=== PATIENT | female | born 1935 | race Caucasian/White ===

== ENCOUNTER 2017-01-16 01:42 | Emergency (ER) | payer MEDICARE, BC ==
[~2017-01-16] VITALS: Ht 165.1 cm; Wt 73.0 kg
[2017-01-16 01:42] VITALS: BP 132/73; PULSE 88; RESP 16; TEMP 97.9; O2SAT 96
[~2017-01-16 01:42] MED LIST: ADVA100A INH; COLA100C3 PO; LOSA100T2 PO; LYRI75CA PO; MIRA25TA PO; PARO20TA2 PO; TYLETAB34 PO
[2017-01-16] MEDS ORDERED: LUTE40CA2 PO (01:57)
[2017-01-16] MEDS ORDERED: ZOFR4TAB3 SL (01:59)
--- NOTE | 2017-01-16 02:14 | PD ---
HPI Chief Complaint: Chest Pain Time Seen by Provider: 01:59 Travel History International Travel<30 days: No Contact w/Intl Traveler<30days: No Traveled to known affect area: No History of Present Illness HPI 81-year-old female with history of HTN, COPD here with complaint of abdominal pain radiating into the chest. Patient states that approximately one week ago she had a single episode of diarrhea. Since then she has had a pressure within the upper abdomen located primarily within the epigastrium with extreme nausea. Her symptoms have been fairly constant. She notes that approximately 30-45 minutes after eating the pain and nausea in the epigastrium seems to be worse. This morning approximately 45 minutes prior to arrival patient was awoken from sleep with the pain now radiating up into the chest underneath the left breast. Patient denies any history of cardiac disease and states that she believes she had a nuclear stress test with Dr. Moreno just 3 months ago. No history of an creatinine or hepatobiliary pathology. No associated shortness of breath, vomiting. Patient took 162 mg of aspirin prior to arrival. Pain is 6 out of 10 in severity at this time. PFSH Past Medical History Cardiovascular Problems: Yes (HTN) COPD: Yes Diminished Hearing: No Diverticulitis: Yes Gastrointestinal Disorders: Yes (hemorrhoid) Genitourinary: Yes (UTIs) Hypertension: Yes Respiratory: Yes (COPD) Tetanus Vaccination: Unknown Influenza Vaccination: Yes : 4 Para: 3 Miscarriage: 1 Past Surgical History Gynecologic Surgery: Yes (HYSTERECTOMY) Hysterectomy: Yes (TOTAL) Social History Alcohol Use: Yes (1 GLASS OF WINE A WEEK) Tobacco Use: No Substance Use: No Allergies-Medications (Allergen,Severity, Reaction): Coded Allergies: Barbiturates (Verified Allergy, Mild, HIVES, 01/16/17) Macrodantin (Verified Allergy, Mild, RASH, 01/16/17) Penicillin (Verified Allergy, Unknown, 01/16/17) Reported Meds & Prescriptions Reported Meds & Active Scripts Active Reported Zofran Odt (Ondansetron Odt) 4 Mg Tab 4 Mg SL Q6HR PRN Lutein 40 Mg Cap 40 Mg PO DAILY Myrbetriq (Mirabegron) 25 Mg Tab 25 Mg PO DAILY Advair Diskus Inh (Fluticasone-Salmeterol Inh) 100-50 Mcg/Blist Aer 1 Puff INH BID Rinse mouth after use. Losartan-Hydrochlorothiazide 100-25 Mg Tab 1 Tab PO DAILY Paroxetine (Paroxetine HCl) 20 Mg Tab 20 Mg PO DAILY Lyrica (Pregabalin) 75 Mg Cap 75 Mg PO DAILY Review of Systems Except as stated in HPI: all other systems reviewed are Neg Physical Exam Narrative GENERAL: Well-appearing elderly female in no acute distress SKIN: Focused skin assessment warm/dry. HEAD: Normocephalic. EYES: No scleral icterus. No injection or drainage. ENT: Mucous membranes pink and moist. NECK: Supple CARDIOVASCULAR: Regular rate and rhythm. No murmur appreciated. RESPIRATORY: No accessory muscle use. Clear to auscultation. Breath sounds equal bilaterally. GASTROINTESTINAL: Abdomen soft, non-tender, nondistended. MUSCULOSKELETAL: No obvious deformities. No edema. NEUROLOGICAL: Awake and alert. Normal speech. PSYCHIATRIC: Appropriate mood and affect; insight and judgment normal. Data Data Last Documented VS Vital Signs Date Time Temp Pulse Resp B/P Pulse Ox O2 Delivery O2 Flow Rate FiO2 01/16/17 01:42 97.9 88 16 132/73 96 Room Air Orders Electrocardiogram (01/16/17 02:03) Ckmb (Isoenzyme) Profile (01/16/17 02:03) Complete Blood Count With Diff (01/16/17 02:03) Comprehensive Metabolic Panel (01/16/17 02:03) Magnesium (Mg) (01/16/17 02:03) Prothrombin Time / Inr (Pt) (01/16/17 02:03) Act Partial Throm Time (Ptt) (01/16/17 02:03) Troponin I (01/16/17 02:03) Lipase (01/16/17 02:03) Chest, Single Ap (01/16/17 02:03) Ecg Monitoring (01/16/17 02:03) Bilateral Bp Monitoring (01/16/17 02:03) Iv Access Insert/Monitor (01/16/17 02:03) Oximetry (01/16/17 02:03) Morphine Inj (Morphine Inj) (01/16/17 02:15) Sodium Chloride 0.9% Flush (Ns Flush) (01/16/17 02:15) Nitroglycerin Sl (Nitrostat Sl) (01/16/17 02:15) Ondansetron Inj (Zofran Inj) (01/16/17 02:15) CKMB (01/16/17 02:00) CKMB% (01/16/17 02:00) Labs Laboratory Tests Test 01/16/17 02:00 White Blood Count 9.2 TH/MM3 Red Blood Count 4.13 MIL/MM3 Hemoglobin 12.3 GM/DL Hematocrit 36.4 % Mean Corpuscular Volume 88.1 FL Mean Corpuscular Hemoglobin 29.8 PG Mean Corpuscular Hemoglobin 33.8 % Concent Red Cell Distribution Width 14.5 % Platelet Count 255 TH/MM3 Mean Platelet Volume 7.7 FL Neutrophils (%) (Auto) 72.6 % Lymphocytes (%) (Auto) 18.9 % Monocytes (%) (Auto) 7.3 % Eosinophils (%) (Auto) 0.7 % Basophils (%) (Auto) 0.5 % Neutrophils # (Auto) 6.7 TH/MM3 Lymphocytes # (Auto) 1.7 TH/MM3 Monocytes # (Auto) 0.7 TH/MM3 Eosinophils # (Auto) 0.1 TH/MM3 Basophils # (Auto) 0.0 TH/MM3 CBC Comment DIFF FINAL Differential Comment Prothrombin Time 10.6 SEC Prothromb Time International 1.0 RATIO Ratio Activated Partial 25.7 SEC Thromboplast Time Sodium Level 139 MEQ/L Potassium Level 3.5 MEQ/L Chloride Level 101 MEQ/L Carbon Dioxide Level 29.4 MEQ/L Anion Gap 9 MEQ/L Blood Urea Nitrogen 20 MG/DL Creatinine 1.26 MG/DL Estimat Glomerular Filtration 41 ML/MIN Rate Random Glucose 95 MG/DL Calcium Level 9.0 MG/DL Magnesium Level 2.0 MG/DL Total Bilirubin 0.4 MG/DL Aspartate Amino Transf 35 U/L (AST/SGOT) Alanine Aminotransferase 23 U/L (ALT/SGPT) Alkaline Phosphatase 105 U/L Total Creatine Kinase 128 U/L Creatine Kinase MB 1.0 NG/ML Troponin I LESS THAN 0.02 NG/ML Total Protein 7.7 GM/DL Albumin 3.5 GM/DL Lipase 133 U/L [facility] Medical Decision Making Medical Screen Exam Complete: Yes Emergency Medical Condition: Yes Medical Record Reviewed: Yes Differential Diagnosis 81-year-old female with history of HTN, COPD here with complaint of one week of pressure to the upper abdomen/epigastrium with extreme nausea and now radiating into the left chest inframammary tonight. Differential includes gastritis, pancreatitis, hepatobiliary pathology, peptic ulcer disease, ACS and less likely PE or dissection. Narrative Course Patient placed on monitor, IV established and blood obtained. A twelve-lead EKG shows sinus rhythm with left axis deviation. No notable ST abnormalities, normal intervals. Patient was given morphine, nitroglycerin, Zofran. Had taken aspirin prior to arrival. Portable chest x-ray obtained that by my read shows no acute abnormalities. CBC, CMP, lipase, CK-MB, troponin, magnesium, coags unremarkable. Patient given Protonix with improvement of her symptoms and will be discharged to home. With one week of constant pain, and negative troponin, negative nuclear stress test just 3 months ago my suspicion for cardiac etiology is low. She's not had any exertional symptoms. Her symptoms are made worse with food intake and I suspected degree of gastritis versus peptic ulcer. Will start on Protonix for home. Diagnosis Primary Impression: Epigastric abdominal pain Additional Impression: Atypical chest pain Referrals: Primary Care Physician 2 days Additional Instructions: Zofran as needed for nausea, vomiting. Protonix as prescribed. Follow-up with primary care provider on Tuesday if not improved and return to the ER for the warning signs discussed. Med/Other Pt SpecificInfo: Prescription(s) given Scripts Pantoprazole (Protonix)40 Mg Tab40 Mg PO DAILY #30 TAB Ref 0 Prov:Gwendolyn Mckeon MD 01/16/17 Disposition: 01 DISCHARGE HOME Condition: Stable Gwendolyn Mckeon MD Jan 16, 2017 02:13
[2017-01-16] MEDS ORDERED: SODIUM CHLORIDE 0.9% FLUSH 10 ML FLUSH IVF PRN (02:15)
[2017-01-16] MEDS ORDERED: NITROGLYCERIN 0.4 MG SL 25 TABS/BTL SL ONE (02:15)
[2017-01-16] MEDS ORDERED: MORPHINE SULFATE 4 MG/ML INJ IV PUSH ONE (02:15)
[2017-01-16] MEDS ORDERED: ONDANSETRON HCL 4 MG/2 ML VIAL IV PUSH ONE (02:15)
[2017-01-16 02:18] LABS: AUTOMATED NEUTROPHIL # 6.7 TH/MM3 (1.8-7.7); BASOPHIL % 0.5 % (0.0-2.0); EOSINOPHIL # 0.1 TH/MM3 (0-0.4); EOSINOPHIL % 0.7 % (0.0-4.0); HEMATOCRIT 36.4 % (35.0-46.0); HEMO FLAGS DIFF FINAL; LYMPH % 18.9 % (9.0-44.0); LYMPHOCYTE # 1.7 TH/MM3 (1.0-4.8); MEAN CELL VOLUME 88.1 FL (80.0-100.0); MEAN CORPUSCULAR HEMOGLOBIN 29.8 PG (27.0-34.0); MEAN CORPUSCULAR HGB CONC 33.8 % (32.0-36.0); MONO % 7.3 % (0.0-8.0); NEUT % 72.6 % (16.0-70.0); PLATELET COUNT 255 TH/MM3 (150-450); RED BLOOD COUNT 4.13 MIL/MM3 (4.00-5.30); RED CELL DISTRIBUTION WIDTH 14.5 % (11.6-17.2); WHITE BLOOD COUNT 9.2 TH/MM3 (4.0-11.0)
--- NOTE | 2017-01-16 02:19 | RADRPT ---
EXAM DATE/TIME: 01/16/2017 02:00 [facility] COMPARISON: No previous studies available for comparison. INDICATIONS : Chest pain with nausea tonight. MEDICAL HISTORY : Hypertension. Gastroesophageal reflux disease. Chronic obstructive pulmonary disease. SURGICAL HISTORY : None. ENCOUNTER: Initial ACUITY: 1 day PAIN SCORE: 7/10 LOCATION: Bilateral chest FINDINGS: Single AP view of the chest. The lungs are clear. Cardiomediastinal silhouette within normal limits. No evidence of pleural effusion or pneumothorax. CONCLUSION: No acute cardiopulmonary disease identified. Misbah Krause MD on January 16, 2017 at 2:15 Board Certified Radiologist. This report was verified electronically.
[2017-01-16 02:28] LABS: APTT (PATIENT) 25.7 SEC (24.3-30.1); PROTHROMBIN TIME - PATIENT 10.6 SEC (9.8-11.6)
[2017-01-16 02:58] LABS: ALKALINE PHOSPHATASE 105 U/L (45-117); ALT (GPT) 23 U/L (10-53); ANION GAP 9 MEQ/L (5-15); AST (GOT) 35 U/L (15-37); BICARBONATE 29.4 MEQ/L (21.0-32.0); BLOOD UREA NITROGEN 20 MG/DL (7-18); CHLORIDE 101 MEQ/L (98-107); CREATINE KINASE 128 U/L (26-192); GLOMERULAR FILTRATION RATE 41 ML/MIN (>89); SODIUM (NA) 139 MEQ/L (136-145); TOTAL BILIRUBIN ADULT 0.4 MG/DL (0.2-1.0)
[2017-01-16 03:36] LABS: POTASSIUM 3.5 MEQ/L (3.5-5.1)
[2017-01-16] MEDS ORDERED: PROT40TA PO (04:07)
[2017-01-16 04:10] VITALS: BP 133/75; PULSE 67; RESP 18; O2SAT 97
[2017-01-16] MEDS ORDERED: PANTOPRAZOLE SODIUM 40 MG VIAL IVP ONE (04:15)
--- NOTE | 2017-01-16 12:12 | EKG ---
Date Performed: 01/16/2017 Time Performed: 01:55:22 PTAGE: 81 years EKG: Sinus rhythm MARKED LEFT AXIS DEVIATION ABNORMAL ECG PREVIOUS TRACING : 12/31/2002 09.01 Compared to prior tracing no significant change DOCTOR: Marquis Jimenez Interpretating Date/Time 01/16/2017 12:10:39
== END 2017-01-16 04:39 | disposition home or self-care (01) ==
LOC: NEPE 01:42
DX: R10.13 Epigastric pain (principal); R07.89 Other chest pain; R11.0 Nausea; I10 Essential (primary) hypertension; J44.9 Chronic obstructive pulmonary disease, unspecified; R94.31 Abnormal electrocardiogram [ECG] [EKG]; Z79.899 Other long term (current) drug therapy
CPT/HCPCS: 71010; 80053; 82550; 82552; 83690; 83735; 84484; 85025; 85610; 85730; 93005; 96374; 99285; C9113; J2270; J2405

== ENCOUNTER 2017-03-31 18:40 | Emergency (ER) | payer MEDICARE, BC ==
[~2017-03-31] VITALS: Ht 162.6 cm; Wt 70.0 kg
[~2017-03-31 18:40] MED LIST changes: -COLA100C3 PO; +LUTE40CA2 PO; +PROT40TA PO; -TYLETAB34 PO; +ZOFR4TAB3 SL
[2017-03-31 18:42] VITALS: BP 138/84; PULSE 80; RESP 20; TEMP 98.3; O2SAT 97
--- NOTE | 2017-03-31 18:50 | PD ---
Physical Exam Time Seen by Provider: 18:48 Narrative 81yo F c/o left sided flank pain 2-3 weeks w/ worsening today. Hx of diverticulitis. Denies fever, diarrhea. +n w/o vomiting. Denies urinary symptoms. Patient seen in triage. VS reviewed. Awaiting bed placement. Data Data Last Documented VS Vital Signs Date Time Temp Pulse Resp B/P (MAP) Pulse Ox O2 Delivery O2 Flow Rate FiO2 03/31/17 18:42 98.3 80 20 138/84 (102) 97 Room Air MDM Supervised Visit with CORY: Leanna Rodrigez Mar 31, 2017 18:50
--- NOTE | 2017-03-31 22:50 | PD ---
HPI Chief Complaint: Abdominal Pain Time Seen by Provider: 22:50 Travel History International Travel<30 days: No Contact w/Intl Traveler<30days: No Traveled to known affect area: No History of Present Illness HPI 81-year-old female came to the emergency room brought by her daughter with history of left flank pain radiating down to the left lower quadrant. Patient says the pain started this morning. It is currently 7 out of 10. As made her nauseous but she has not vomited. Bowel movement has been normal. Vital signs were stable. The daughter mentioned that last year when she had similar pain and was brought to the emergency room she was diagnosed with diverticulitis. No history of renal calculus in the past. Patient does look uncomfortable. ON LICENSE OF [facility] Past Medical History Narrative Medical List of her past medical, surgical, social and family history was reviewed from the nursing note. Cardiovascular Problems: Yes (HTN) COPD: Yes Diminished Hearing: No Diverticulitis: Yes Gastrointestinal Disorders: Yes (hemorrhoid) Genitourinary: Yes (UTIs) Hypertension: Yes Respiratory: Yes (COPD) : 4 Para: 3 Miscarriage: 1 Past Surgical History Gynecologic Surgery: Yes (HYSTERECTOMY) Hysterectomy: Yes (TOTAL) Social History Alcohol Use: Yes (1 GLASS OF WINE A WEEK) Tobacco Use: No Substance Use: No Allergies-Medications (Allergen,Severity, Reaction): Coded Allergies: Barbiturates (Unverified Allergy, Mild, HIVES, 03/31/17) nitrofurantoin (Unverified Allergy, Mild, RASH, 03/31/17) penicillin G (Unverified Allergy, Unknown, 03/31/17) Comments List of her allergies reviewed from the nursing note. Reported Meds & Prescriptions Reported Meds & Active Scripts Active Protonix (Pantoprazole Sodium) 40 Mg Tab 40 Mg PO DAILY Reported Zofran Odt (Ondansetron Odt) 4 Mg Tab 4 Mg SL Q6HR PRN Lutein 40 Mg Cap 40 Mg PO DAILY Myrbetriq (Mirabegron) 25 Mg Tab 25 Mg PO DAILY Advair Diskus Inh (Fluticasone-Salmeterol Inh) 100-50 Mcg/Blist Aer 1 Puff INH BID Rinse mouth after use. Losartan-Hydrochlorothiazide 100-25 Mg Tab 1 Tab PO DAILY Paroxetine (Paroxetine HCl) 20 Mg Tab 20 Mg PO DAILY Lyrica (Pregabalin) 75 Mg Cap 75 Mg PO DAILY Narrative Medication List of her home medications reviewed from the nursing note. Review of Systems Except as stated in HPI: all other systems reviewed are Neg Physical Exam Narrative GENERAL: Awake, alert, elderly, frail, moderate distress SKIN: Focused skin assessment warm/dry. HEAD: Atraumatic. Normocephalic. EYES: Pupils equal and round. No scleral icterus. No injection or drainage. ENT: No nasal bleeding or discharge. Mucous membranes pink and moist. NECK: Trachea midline. No JVD. CARDIOVASCULAR: Regular rate and rhythm. No murmur appreciated. RESPIRATORY: No accessory muscle use. Clear to auscultation. Breath sounds equal bilaterally. GASTROINTESTINAL: Abdomen soft, non-tender, nondistended. Hepatic and splenic margins not palpable. MUSCULOSKELETAL: No obvious deformities. No clubbing. No cyanosis. No edema. NEUROLOGICAL: Awake and alert. No obvious cranial nerve deficits. Motor grossly within normal limits. Normal speech. PSYCHIATRIC: Appropriate mood and affect; insight and judgment normal. Data Data Last Documented VS Vital Signs Date Time Temp Pulse Resp B/P (MAP) Pulse Ox O2 Delivery O2 Flow Rate FiO2 04/01/17 01:21 03/31/17 23:22 98.1 71 16 100 Room Air Orders Orders Complete Blood Count With Diff (03/31/17 22:52) Comprehensive Metabolic Panel (03/31/17 22:52) Lipase (03/31/17 22:52) Urinalysis - C+S If Indicated (03/31/17 22:52) Ct Abd/Pel W/O Iv Contrast (03/31/17 22:52) Iv Access Insert/Monitor (03/31/17 22:52) Ecg Monitoring (03/31/17 22:52) Oximetry (03/31/17 22:52) Morphine Inj (Morphine Inj) (03/31/17 23:00) Ondansetron Inj (Zofran Inj) (03/31/17 23:00) Sodium Chloride 0.9% Flush (Ns Flush) (03/31/17 23:00) Sodium Chlorid 0.9% 500 Ml Inj (Ns 500 M (03/31/17 23:00) Labs Laboratory Tests Test 03/31/17 23:30 04/01/17 00:20 04/01/17 00:30 White Blood Count 8.9 TH/MM3 Red Blood Count 4.30 MIL/MM3 Hemoglobin 12.4 GM/DL Hematocrit 37.7 % Mean Corpuscular Volume 87.6 FL Mean Corpuscular Hemoglobin 29.0 PG Mean Corpuscular Hemoglobin Concent 33.1 % Red Cell Distribution Width 14.6 % Platelet Count 219 TH/MM3 Mean Platelet Volume 8.2 FL Neutrophils (%) (Auto) 71.6 % Lymphocytes (%) (Auto) 19.4 % Monocytes (%) (Auto) 7.4 % Eosinophils (%) (Auto) 1.0 % Basophils (%) (Auto) 0.6 % Neutrophils # (Auto) 6.3 TH/MM3 Lymphocytes # (Auto) 1.7 TH/MM3 Monocytes # (Auto) 0.7 TH/MM3 Eosinophils # (Auto) 0.1 TH/MM3 Basophils # (Auto) 0.1 TH/MM3 CBC Comment DIFF FINAL Differential Comment Blood Urea Nitrogen 18 MG/DL Creatinine 0.97 MG/DL Random Glucose 88 MG/DL Total Protein 7.5 GM/DL Albumin 3.4 GM/DL Calcium Level 8.5 MG/DL Alkaline Phosphatase 91 U/L Aspartate Amino Transf (AST/SGOT) 50 U/L Alanine Aminotransferase (ALT/SGPT) 27 U/L Total Bilirubin 0.5 MG/DL Sodium Level 137 MEQ/L Potassium Level 4.5 MEQ/L Chloride Level 103 MEQ/L Carbon Dioxide Level 27.4 MEQ/L Anion Gap 7 MEQ/L Estimat Glomerular Filtration Rate 55 ML/MIN Lipase 188 U/L Urine Color YELLOW Urine Turbidity CLEAR Urine pH 5.5 Urine Specific [place] 1.016 Urine Protein NEG mg/dL Urine Glucose (UA) NEG mg/dL Urine Ketones NEG mg/dL Urine Occult Blood SMALL Urine Nitrite NEG Urine Bilirubin NEG Urine Urobilinogen LESS THAN 2.0 MG/DL Urine Leukocyte Esterase SMALL Urine RBC 2 /hpf Urine WBC 1 /hpf Urine Squamous Epithelial Cells 1 /hpf Urine Bacteria RARE /hpf Urine Mucus FEW /lpf Microscopic Urinalysis Comment CULT NOT INDICATED MDM Medical Decision Making Medical Screen Exam Complete: Yes Emergency Medical Condition: Yes Medical Record Reviewed: Yes Differential Diagnosis Ureteral colic, acute diverticulitis, pyelonephritis, UTI Narrative Course 11:13 PM awaiting for the blood test results and the CAT scan to be done and resulted. Patient was given pain medication and nausea medicine. 12:[address] scan is back and negative for any acute findings. CBC appears to be within normal limit. Awaiting for the CMP. This was a recollect. 1:10 AM CMP is back and within acceptable limits. Awaiting for the UA. Case will be signed over to the PA was in the pod. Procedures EKG Prior to Arrival: No Diagnosis Primary Impression: Flank pain Additional Instructions: Please return to the ER if the condition worsens or any other new concerns. Otherwise follow-up with your primary care. Tylenol/Motrin/Advil for pain as needed. Apply warm alternating with cold compress. Med/Other Pt SpecificInfo: No Change to Meds Disposition: 01 DISCHARGE HOME Condition: Stable Huber Arzola MD Mar 31, 2017 22:50
[2017-03-31] MEDS ORDERED: MORPHINE SULFATE 4 MG/ML INJ IV PUSH ONE (23:00)
[2017-03-31] MEDS ORDERED: ONDANSETRON HCL 4 MG/2 ML VIAL IVP ONE (23:00)
[2017-03-31] MEDS ORDERED: SODIUM CHLORIDE 0.9% FLUSH 10 ML FLUSH IV FLUSH PRN (23:00)
[2017-03-31] MEDS ORDERED: SODIUM CHLORID 0.9% 500 ML INJ 500 ML IV ONE (23:00)
[2017-03-31 23:22] VITALS: BP 167/78; PULSE 71; RESP 16; TEMP 98.1; O2SAT 100
--- NOTE | 2017-03-31 23:42 | RADRPT ---
EXAM DATE/TIME: 03/31/2017 23:00 [facility] COMPARISON: CT ABDOMEN & PELVIS W/O CONTRAST, July 01, 2016, 17:14. INDICATIONS : Left lower quadrant pain past few weeks. ORAL CONTRAST: No oral contrast ingested. RADIATION DOSE: 6.91 CTDIvol (mGy) MEDICAL HISTORY : Cardiovascular disease. Hypertension. Diverticulitis.COPD SURGICAL HISTORY : Hysterectomy. ENCOUNTER: Initial ACUITY: 2 weeks PAIN SCALE: 6/10 LOCATION: Left lower quadrant TECHNIQUE: Volumetric scanning of the abdomen and pelvis was performed. Using automated exposure control and ad justment of the mA and/or kV according to patient size, radiation dose was kept as low as reasonably achievable to obtain optimal diagnostic quality images. DICOM format image data is available electro nically for review and comparison. FINDINGS: LOWER LUNGS: The visualized lower lungs demonstrate no acute finding. There is mild bronchiolectasis in the right middle and right lower lobe. LIVER: Homogeneous density without lesion. There is no dilation of the biliary tree. No calcified gallston es. SPLEEN: Normal size without lesion. There are punctate calcifications. PANCREAS: No significant abnormality. KIDNEYS: Normal in size and shape. There is no mass, stone, or hydronephrosis. ADRENAL GLANDS: Within normal limits. VASCULAR: There is no aortic aneurysm. There is mild atherosclerotic disease. BOWEL/MESENTERY: The stomach, small bowel, and colon demonstrate no acute abnormality. There is no free intraperitone al air or fluid. A moderate size hiatal hernia is present. There is sigmoid diverticulosis. Appendix is normal. ABDOMINAL WALL: Within normal limits. RETROPERITONEUM: There is no lymphadenopathy. BLADDER: No wall thickening or mass. REPRODUCTIVE: The uterus is absent. INGUINAL: There is no lymphadenopathy or hernia. MUSCULOSKELETAL: There are degenerative changes of the lumbar spine with levoscoliosis and there has been prior agustin ctomy and posterior element fusion. CONCLUSION: 1. No acute finding is identified to explain the left lower quadrant pain. There is sigmoid diverticu losis but no acute inflammatory changes are present. 2. Nonacute findings include a moderate size hiatal hernia and mild atherosclerotic disease. Indio Lopez MD on March 31, 2017 at 23:34 Board Certified Radiologist. This report was verified electronically.
[2017-04-01 00:01] LABS: AUTOMATED NEUTROPHIL # 6.3 TH/MM3 (1.8-7.7); BASOPHIL # 0.1 TH/MM3 (0-0.2); BASOPHIL % 0.6 % (0.0-2.0); EOSINOPHIL # 0.1 TH/MM3 (0-0.4); HEMATOCRIT 37.7 % (35.0-46.0); HEMO FLAGS DIFF FINAL; LYMPH % 19.4 % (9.0-44.0); LYMPHOCYTE # 1.7 TH/MM3 (1.0-4.8); MEAN CELL VOLUME 87.6 FL (80.0-100.0); MEAN CORPUSCULAR HGB CONC 33.1 % (32.0-36.0); MONO % 7.4 % (0.0-8.0); NEUT % 71.6 % (16.0-70.0); PLATELET COUNT 219 TH/MM3 (150-450); RED CELL DISTRIBUTION WIDTH 14.6 % (11.6-17.2); WHITE BLOOD COUNT 8.9 TH/MM3 (4.0-11.0)
[2017-04-01 00:53] LABS: ALKALINE PHOSPHATASE 91 U/L (45-117); TOTAL BILIRUBIN ADULT 0.5 MG/DL (0.2-1.0)
[2017-04-01 00:54] LABS: ALT (GPT) 27 U/L (10-53); ANION GAP 7 MEQ/L (5-15); AST (GOT) 50 U/L (15-37); BICARBONATE 27.4 MEQ/L (21.0-32.0); BLOOD UREA NITROGEN 18 MG/DL (7-18); CHLORIDE 103 MEQ/L (98-107); GLOMERULAR FILTRATION RATE 55 ML/MIN (>89); SODIUM (NA) 137 MEQ/L (136-145)
[2017-04-01 00:55] LABS: POTASSIUM 4.5 MEQ/L (3.5-5.1)
[2017-04-01 01:14] LABS: BACTERIA, URINE RARE /hpf; BLOOD, URINE SMALL (NEG); COMMENT (UR) CULT NOT INDICATED; CULTURE IF INDICATED CULT NOT INDICATED; GLUCOSE,URINE NEG (NEG); KETONE, URINE NEG (NEG); MUCUS URINE FEW /lpf (OCC); NITRITE,URINE NEG (NEG); PH, URINE 5.5 (5.0-8.5); SQUAMOUS EPITHELIAL CELL URINE 1 /hpf (0-5); URINE COLOR YELLOW (YELLW/STRAW)
== END 2017-04-01 01:40 | disposition home or self-care (01) ==
LOC: NEPD 18:40
DX: R10.9 Unspecified abdominal pain (principal); R11.0 Nausea; I10 Essential (primary) hypertension; J44.9 Chronic obstructive pulmonary disease, unspecified; K57.92 Diverticulitis of intestine, part unspecified, without perforation or abscess without bleeding; Z79.52 Long term (current) use of systemic steroids; Z79.899 Other long term (current) drug therapy; Z88.0 Allergy status to penicillin; Z88.8 Allergy status to other drugs, medicaments and biological substances
CPT/HCPCS: 74176; 80053; 81001; 83690; 85025; 96361; 96374; 96375; 99285; J2270; J2405; J7040

== ENCOUNTER → 2017-05-13 | Outpatient (CLI) | payer MEDICARE, BC | LOC: HRSP 12:05 | PROVIDERS: ATTEND Internal Medicine | DX: J45.909 Unspecified asthma, uncomplicated (principal); R06.02 Shortness of breath | CPT/HCPCS: 94060; 94620; 94726; 94729; 95012 ==